=== PATIENT | male | born 1960 | race Caucasian/White ===

== ENCOUNTER 2022-05-17 07:08 | Day surgery (SDC) | payer OTHER, SELFPAY ==
[2022-05-16] MEDS: CEFAZOLIN 2 GM INJ IVP (08:20)
[2022-05-17] VITALS (12 sets, daily range): BP systolic 82–141; BP diastolic 44–72; PULSE 67–86; RESP 14–16; TEMP 36.4–36.7; O2SAT 97–99; BMI 27.6
[2022-05-17] MEDS: LACTATED RINGERS 1000 ML 1,000 ML 100 ML IV (07:30)
[2022-05-17] MEDS: SODIUM CHLORIDE 0.9 % (FLUSH) 10 ML SYRINGE IVF (07:41)
--- NOTE | 2022-05-17 08:46 | SUR.OPER ---
PATIENT QUESTIONS ANSWERED SATISFACTORILY PREOPERATIVELY.? PATIENT BROUGHT TO OR #3 PER CART.? Patient positioned supine on OR #3 bed.?The perioperative?team supported arms bilaterally on arm boards.? Final approval of positioning by surgeon.?
--- NOTE | 2022-05-17 08:49 | SUR.OPER ---
CONTINUOUS IRRIGATION OF THE LEFT KNEE WITH 3000cc BAGS NACL.
[2022-05-17] MEDS: BUPIVACAINE 0.25% 30 ML INJECTION (09:00)
--- NOTE | 2022-05-17 09:02 | PM.ORPRC ---
Procedure Note Date of procedure: 05/17/22 Procedure: SURGEON: Lefty Coates MD LITHOGRAPH DESIGNER: CASI Wiseman PREOPERATIVE DIAGNOSIS: Left knee medial and lateral meniscus tear POSTOPERATIVE DIAGNOSIS: Left knee medial and lateral meniscus tear NAME OF OPERATION: Left knee arthroscopic subtotal medial and lateral meniscectomy ANESTHESIA: Spinal ESTIMATED BLOOD LOSS: 0 mL COMPLICATIONS: None SPECIMENS: None DRAINS: None PREOPERATIVE ANTIBIOTICS: Ancef 2 gram INDICATIONS: The patient is a 62-year-old male with a history of left knee pain. MRI scan is consistent with the diagnoses above. Despite appropriate nonoperative management, including activity modification, antiinflammatories, [id number] pain medication, bracing, physical therapy, and injections they continue to have pain and disability. Operative intervention was offered. The risks, benefits and expected outcomes were discussed in detail. These included but were not limited to: Infection, bleeding, injury to blood vessel or nerve, venous thromboembolism. All questions were answered to their satisfaction. PROCEDURE: Spinal anesthesia was administered. The patient was placed supine on the operating room table. The left lower extremity was prepped and draped in the usual sterile fashion. The limb was exsanguinated with the Emir bandage. The pneumatic tourniquet was inflated to 300 mmHg. A standard anterolateral portal was established. The arthroscope was introduced. The working portal was established anteromedially. Diagnostic arthroscopy was performed with findings as follows: The suprapatellar pouch is normal. Articular surface on the patella is normal. Articular surface on the trochlea is normal. The medial gutter is normal. The medial compartment shows grade 2/3 change on the medial femoral condyle, normal articular cartilage on the medial tibial plateau. The medial meniscus has a degenerative tear of the entirety of the meniscus. This primarily consists of radial tearing and undersurface horizontal cleavage tearing of the posterior horn, resulting in and large unstable flap. The meniscus is well attached to the tibia posteriorly. The notch shows the ACL to be intact. The lateral compartment shows normal articular cartilage on the lateral femoral condyle and lateral tibial plateau. The lateral meniscus has a complex degenerative tear of under surface, primarily consisting of horizontal cleavage tearing. The lateral gutter is normal. The medial meniscus was debrided to a stable base using a combination of baskets and jonnie through both portals. The meniscus is quite poor quality tissue. Therefore, this results in subtotal medial meniscectomy. Likewise, the undersurface of the lateral meniscus was debrided with the shaver through both portals. Again, of the tissue quality is quite poor, therefore resulting in subtotal lateral meniscectomy as well. Arthroscopic instruments were removed, the portal sites were Steri-Stripped closed, the knee was infiltrated with 30 mL of 0.25% Marcaine without epinephrine. A dry dressing was applied, the tourniquet was released. Sponge and needle counts were correct x 2. The patient tolerated the procedure well. There were no apparent complications. They were carefully transferred to the hospital bed and taken to the postanesthesia care unit in satisfactory condition. PLAN: The patient will be discharged to home. They may weightbear as tolerates. Range of motion will be unrestricted. They will follow up in the office next week for a wound check.
--- NOTE | 2022-05-17 09:16 | W.ANESCHARGE ---
Anesthesia Charges Start Date/Time Anesthesia Start Date: 05/17/22 Anesthesia Start Time: 08:13 Stop Date/Time Anesthesia Stop Date: 05/17/22 Anesthesia Stop Time: 09:12 Summary Emergency: No
[2022-05-17] MEDS: PHENYLEPHRINE 100 MCG/ML SYRINGE IVP (09:18)
--- NOTE | 2022-05-17 09:35 | W.ANESCHARGE ---
Anesthesia Charges Start Date/Time Anesthesia Start Date: 05/17/22 Anesthesia Start Time: 08:13 Stop Date/Time Anesthesia Stop Date: 05/17/22 Anesthesia Stop Time: 09:12 Summary Emergency: No
[2022-05-17] MEDS: OxyCODONE/APAP 5-325 TABLET PO (10:07)
== END 2022-05-17 10:55 | disposition home or self-care (01) ==
PROVIDERS: Visit Provider Orthopaedic Surgery
PROC: (CPT 29870; principal; 2022-05-17 08:45)
DX: M23.222 Derangement of posterior horn of medial meniscus due to old tear or injury, left knee (principal); M23.262 Derangement of other lateral meniscus due to old tear or injury, left knee
CPT/HCPCS: 29880; 01400; A9270; J0690; J1885; J2250; J2370; J2405; J2704; J3010; J3490; J7120

== ENCOUNTER 2022-08-06 08:30 | Outpatient (RCR) | payer OTHER, SELFPAY | END 2022-08-06 09:15 | disposition home or self-care (01) | PROVIDERS: Visit Provider Physician Assistant Surgical | DX: Z98.890 Other specified postprocedural states (principal); Z51.89 Encounter for other specified aftercare | CPT/HCPCS: 97110; 97161 ==